=== PATIENT | male | born 1990 | race Caucasian/White ===

== ENCOUNTER 2017-02-06 15:13 | Emergency (ER) | payer OTHER ==
[~2017-02-06] VITALS: Ht 185.4 cm; Wt 54.0 kg
[2017-02-06] MEDS ORDERED: IV NS 0.9% 1,000 ML BAG IV ONE ×2 (15:30→17:00)
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
[2017-02-06 15:39] LABS: BASOPHILS # (AUTO) 0.4 /CMM (0.0-0.2); BASOPHILS % (AUTO) 2.1 % (0.0-2.0); EOSINOPHILS # (AUTO) 0.1 /CMM (0.0-0.7); EOSINOPHILS % (AUTO) 0.7 % (0.0-6.0); HEMATOCRIT 46 % (39-51); HEMOGLOBIN 15.4 g/dL (13.5-17.5); LYMPHOCYTES # (AUTO) 1.2 /CMM (0.8-4.8); LYMPHOCYTES % (AUTO) 6.3 % (20.0-44.0); MEAN CORPUSCULAR HEMOGLOBIN 30 PG (26.0-33.0); MEAN CORPUSCULAR HGB CONC 34 g/dl (31.0-36.0); MEAN CORPUSCULAR VOLUME 88 fL (80-96); MONOCYTES # (AUTO) 0.9 /CMM (0.1-1.30); MONOCYTES % (AUTO) 4.8 % (2.0-12.0); NEUTROPHILS # (AUTO) 16.1 /CMM (1.8-8.9); NEUTROPHILS % (AUTO) 86.1 % (43.0-81.0); PLATELET COUNT (AUTO) 266 /CMM (150-450); RDW COEFFICIENT OF VARIATION 12.6 (11.5-15.0); RED BLOOD CELL COUNT(AUTO) 5.19 MIL/uL (4.5-6.0); WHITE BLOOD COUNT (AUTO) 18.7 K/uL (4.3-11.0)
--- NOTE | 2017-02-06 15:40 | NUR ---
CARDROOM MANAGER AT FOR BLOOD DRAW. PT MEDICATED ORDERED.
[2017-02-06 15:49] LABS: CARBON DIOXIDE 25 mmol/L (21-32); CHLORIDE 98 mmol/L (98-107); GLUCOSE 128 mg/dL (74-106); POTASSIUM 3.5 mmol/L (3.5-5.1); SODIUM SERUM 138 mmol/L (136-145); UREA NITROGEN, BLOOD 16 mg/dL (7-18)
[2017-02-06 15:55] LABS: ALANINE AMINOTRANSFERASE 26 U/L (12-78); ALBUMIN 4.6 g/dL (3.4-5.0); ALCOHOL, BLOOD < 3 mg/dL (0-0); ALKALINE PHOSPHATASE 55 U/L (46-116); ASPARTATE AMINOTRANSFERASE 42 U/L (15-37); BILIRUBIN,DIRECT 0.1 mg/dL (0.0-0.2); BILIRUBIN,TOTAL 0.7 mg/dL (0.2-1.0); CALCIUM, SERUM 9.6 mg/dL (8.5-10.1)
[2017-02-06] MEDS ORDERED: ONDANSETRON HCL/PF 4 MG/2 ML VIAL ONE ×2 (15:55→17:04)
[2017-02-06 15:58] LABS: ACETAMINOPHEN 0 ug/ml (10-30); TROPONIN I < 0.017 ng/mL (0.00-0.056)
[2017-02-06] MEDS ORDERED: ONDANSETRON HCL/PF - ER 4 MG/2 ML VIAL IV ONE ×2 (16:00→17:00)
[2017-02-06 16:06] LABS: INR 1.11 (0.87-1.13); PROTHROMBIN TIME 11.6 SECS (9.5-12.7)
[2017-02-06] MEDS ORDERED: LEVETIRACETAM (500MG) 500 MG in IV NS 0.9% 100 ML IV SCH (17:00)
--- NOTE | 2017-02-06 17:30 | NUR ---
PT TAKEN TO CT.
--- NOTE | 2017-02-06 18:00 | NUR ---
PT PULLED OUT IV ACCESS.
--- NOTE | 2017-02-06 18:57 | NUR ---
Patient discharged to home in stable condition. Written and verbal after care instructions given. Patient verbalizes understanding of instruction.
[2017-02-06 19:00] VITALS: BP 107/74
[2017-02-06 23:36] LABS: THYROID STIMULATING HORMONE 0.344 uIU/mL (0.358-3.74)
== END 2017-02-06 19:01 | disposition home or self-care (01) ==
LOC: ER 15:18
DX: G40.909 Epilepsy, unspecified, not intractable, without status epilepticus (principal); F11.23 Opioid dependence with withdrawal; R41.82 Altered mental status, unspecified; E86.0 Dehydration; Z91.14 Patient's other noncompliance with medication regimen; Z91.19 Patient's noncompliance with other medical treatment and regimen
CPT/HCPCS: 36415; 70450-TC; 71010-TC; 72128-TC; 80048-TC; 80076-TC; 82962-TC; 84443-TC; 84484-TC; 85025-TC; 85730-TC; A4606; G0480; J1953; J2405; J7030; Z7610

== ENCOUNTER 2018-09-26 10:15 | Emergency (ER) | payer MEDICAID, OTHER ==
[~2018-09-26] VITALS: Ht 172.7 cm; Wt 74.8 kg
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
[2018-09-26] MEDS ORDERED: LIDOCAINE 1%-EPI 1:100,000 20 ML VIAL ONE (10:25)
--- NOTE | 2018-09-26 10:26 | NUR ---
SEEN AND EXAMINED BY DR. ARMANDO.
--- NOTE | 2018-09-26 10:32 | NUR ---
Wanda wall in [facility] - 09/26/18 at 1033 by GERBER Patient discharged to home in stable condition. Written and verbal after care instructions given to patient's verbalizes understanding of instruction.
[2018-09-26] MEDS ORDERED: HYDROCODONE/APAP 5/325MG 1 EACH TABLET ONE (10:51)
[2018-09-26] MEDS ORDERED: IBUPROFEN 600 MG TABLET PO ONE ×2 (10:51→11:00)
--- NOTE | 2018-09-26 10:57 | NUR ---
SUTURING DONE BY
--- NOTE | 2018-09-26 10:57 | NUR ---
SECOND STEWARD AT BEDSIDE FOR XRAY.
[2018-09-26] MEDS ORDERED: HYDROCODONE/APAP 5/325MG 1 EACH TABLET PO ONE (11:00)
--- NOTE | 2018-09-26 11:41 | NUR ---
WRIST SPLINT DONE BY SORTER PACKER.
[2018-09-26 11:43] VITALS: BP 110/52
--- NOTE | 2018-09-26 11:43 | NUR ---
Patient discharged to home in stable condition. Written and verbal after care instructions given. Patient verbalizes understanding of instruction.
== END 2018-09-26 12:00 | disposition home or self-care (01) ==
LOC: ER 10:17
DX: S52.571A Other intraarticular fracture of lower end of right radius, initial encounter for closed fracture (principal); S01.81XA Laceration without foreign body of other part of head, initial encounter; R56.9 Unspecified convulsions; Z60.2 Problems related to living alone; V49.49XA Driver injured in collision with other motor vehicles in traffic accident, initial encounter; Y93.89 Activity, other specified; Y92.410 Unspecified street and highway as the place of occurrence of the external cause; Y99.8 Other external cause status
CPT/HCPCS: 12013; 29125; 73110; 99283; A4606; A6402; A6403; J3490

== ENCOUNTER 2018-09-28 12:05 | Emergency (ER) | payer MEDICAID ==
[~2018-09-28] VITALS: Ht 172.7 cm; Wt 75.3 kg
[2018-09-28 12:09] VITALS: BP 103/61
--- NOTE | 2018-09-28 12:43 | NUR ---
Patient discharged to home in stable condition. Written and verbal after care instructions given. Patient verbalizes understanding of instruction.
== END 2018-09-28 12:44 | disposition home or self-care (01) ==
LOC: ER 12:08
DX: S01.81XD Laceration without foreign body of other part of head, subsequent encounter (principal); R56.9 Unspecified convulsions; Z60.2 Problems related to living alone; V49.49XD Driver injured in collision with other motor vehicles in traffic accident, subsequent encounter
CPT/HCPCS: 99282; A6402; Z7502

== ENCOUNTER 2020-11-05 12:48 | Emergency (ER) | payer MEDICAID ==
[~2020-11-05] VITALS: Ht 172.7 cm; Wt 79.4 kg
[2020-11-05 12:50] VITALS: BP 130/83
[2020-11-05] MEDS ORDERED: SULF5DRO RIGHTEYE (13:26)
[2020-11-05] MEDS ORDERED: TDAP [DIPH/PERTUSSIS/TET] 0.5 ML VIAL IM ONE (13:30)
== END 2020-11-05 13:44 | disposition home or self-care (01) ==
LOC: ER 12:53
DX: T15.11XA Foreign body in conjunctival sac, right eye, initial encounter (principal); F17.200 Nicotine dependence, unspecified, uncomplicated; Z60.2 Problems related to living alone; X58.XXXA Exposure to other specified factors, initial encounter; Y93.89 Activity, other specified; Y92.89 Other specified places as the place of occurrence of the external cause; Y99.8 Other external cause status

== ENCOUNTER 2020-11-08 17:43 | Emergency (ER) | payer MEDICAID ==
[~2020-11-08] VITALS: Ht 172.7 cm; Wt 79.4 kg
[~2020-11-08 17:43] MED LIST: SULF5DRO RIGHTEYE
[2020-11-08 17:51] VITALS: BP 132/79
[2020-11-08] MEDS ORDERED: FLUORESCEIN SODIUM OPHTH 1 EA STRIP ONE (18:12)
[2020-11-08] MEDS ORDERED: CIPR5DRO EACHEYE (18:22)
[2020-11-08] MEDS ORDERED: TETRACAINE HCL 0.5% OPHTALMIC 15 ML BOTTLE OP ONE (18:30)
[2020-11-08] MEDS ORDERED: FLUORESCEIN SODIUM OPHTH 1 EA STRIP OP ONE (18:30)
--- NOTE | 2020-11-08 18:32 | NUR ---
Patient discharged to home in stable condition. Written and verbal after care instructions given. Patient verbalizes understanding of instruction.
--- NOTE | 2020-11-08 18:51 | NUR ---
pt discharged. unable to depart in [facility].
== END 2020-11-09 | disposition home or self-care (01) ==
LOC: ER 11-09 17:43
DX: T15.81XA Foreign body in other and multiple parts of external eye, right eye, initial encounter (principal); F17.200 Nicotine dependence, unspecified, uncomplicated; Z60.2 Problems related to living alone; Z79.899 Other long term (current) drug therapy; W45.8XXA Other foreign body or object entering through skin, initial encounter; Y93.89 Activity, other specified; Y92.89 Other specified places as the place of occurrence of the external cause; Y99.8 Other external cause status

== ENCOUNTER 2021-02-25 11:24 | Emergency (ER) | payer MEDICAID ==
[~2021-02-25] VITALS: Ht 172.7 cm; Wt 79.4 kg
[~2021-02-25 11:24] MED LIST changes: +CIPR5DRO EACHEYE
--- NOTE | 2021-02-25 11:37 | NUR ---
BIBS FOR C/O LOWER BACK PAIN X 2 DAYS. RATES PAIN 5/10. RESPIRATION REGULAR AND UNLABORED. WILL CONTINUE TO MONITOR THE PATIENT.
[2021-02-25] MEDS ORDERED: IBUPROFEN 600 MG TABLET ONE (11:38)
[2021-02-25] MEDS ORDERED: IBUPROFEN 600 MG TABLET PO ONE (12:00)
[2021-02-25] MEDS ORDERED: IBUP-1955 PO (12:17)
[2021-02-25] MEDS ORDERED: HYDR-3972 PO (12:17)
[2021-02-25] MEDS ORDERED: HYDR-4209 PO (12:17)
[2021-02-25 12:25] VITALS: BP 118/76
--- NOTE | 2021-02-25 12:25 | NUR ---
Patient discharged to home in stable condition. Written and verbal after care instructions given. Patient verbalizes understanding of instruction.
== END 2021-02-25 12:26 | disposition home or self-care (01) ==
LOC: ER 11:30
DX: S39.012A Strain of muscle, fascia and tendon of lower back, initial encounter (principal); F17.200 Nicotine dependence, unspecified, uncomplicated; Z60.2 Problems related to living alone; X50.0XXA Overexertion from strenuous movement or load, initial encounter; Y93.89 Activity, other specified; Y92.89 Other specified places as the place of occurrence of the external cause; Y99.8 Other external cause status
CPT/HCPCS: 72110-TC